=== PATIENT | male | born 1985 | race Two or more races ===

== ENCOUNTER 2018-05-24 14:28 | Emergency (ER) | payer OTHER ==
[~2018-05-24] VITALS: Ht 152.4 cm; Wt 83.9 kg
== END 2018-05-24 16:48 | disposition home or self-care (01) ==
LOC: ER 14:28
DX: S61.411A Laceration without foreign body of right hand, initial encounter (principal); W45.8XXA Other foreign body or object entering through skin, initial encounter; Y93.89 Activity, other specified; Y92.814 Boat as the place of occurrence of the external cause; Y99.8 Other external cause status

== ENCOUNTER 2018-05-31 07:45 | Emergency (ER) | payer OTHER ==
[~2018-05-31] VITALS: Ht 175.3 cm; Wt 82.1 kg
== END 2018-05-31 08:40 | disposition home or self-care (01) ==
LOC: ER 07:45
DX: Z48.02 Encounter for removal of sutures (principal)